=== PATIENT | female | born 1995 ===

== ENCOUNTER 2018-05-22 17:29 | Emergency (ER) | payer OTHER ==
[~2018-05-22] VITALS: Ht 170.2 cm; Wt 63.5 kg
[~2018-05-22 17:29] MED LIST: BUCALSEP SPRAY30 ML MM; CEFTIN250 MG PO; DOXYCYCLINE HY100 MG PO; FLAGYL500MG PO; FLUCONAZOLE100 MG PO; GYNE-LOTRIMIN45 GM VAG
== END 2018-05-22 20:35 | disposition home or self-care (01) ==
LOC: ER 17:29
DX: J35.01 Chronic tonsillitis (principal)

== ENCOUNTER 2025-04-11 03:11 | Emergency (ER) | payer OTHER ==
[~2025-04-11] VITALS: Ht 167.6 cm; Wt 61.2 kg
[2025-04-11 03:48] VITALS: BP 106/71; O2SAT 98
[2025-04-11] MEDS ORDERED: LIDOCAINE HCL VISCOUS 20MG/ML BLIST 15ML MM STA (04:37)
[2025-04-11] MEDS ORDERED: LIDOCAINE HCL VISCOUS 20MG/ML BLIST 15ML MM ONE (05:03)
[2025-04-11] MEDS ORDERED: ORASEP SPRAY30 ML MM (05:08)
== END 2025-04-11 05:30 | disposition home or self-care (01) ==
LOC: ER 03:11
DX: R09.A2 Foreign body sensation, throat (principal); Z09 Encounter for follow-up examination after completed treatment for conditions other than malignant neoplasm; Z91.013 Allergy to seafood